=== PATIENT | female | born 1985 | race Caucasian/White ===

== ENCOUNTER 2017-01-15 10:17 | Outpatient (CLI) | payer OTHER ==
[2017-01-15 10:49] VITALS: BMI 42.1
== END 2017-01-15 11:48 | disposition home or self-care (01) ==
LOC: FBCOUT 10:17 → FBC 10:23 → FBCOUT 11:48
PROVIDERS: ATTEND Family Medicine
DX: O36.8190 Decreased fetal movements, unspecified trimester, not applicable or unspecified (principal); Z3A.00 Weeks of gestation of pregnancy not specified
CPT/HCPCS: 59025; 81002; G0463

== ENCOUNTER 2017-01-16 02:58 | Inpatient (IN) | payer OTHER ==
[2017-01-16] MEDS ORDERED: IV START KIT ONE (04:33)
[2017-01-16] MEDS ORDERED: MINERAL OIL 25 ML BOT ONE (04:33)
[2017-01-16] MEDS ORDERED: OXYTOCIN IN LR 500 ML IV ONE ×2 (04:33→04:37)
[2017-01-16] MEDS ORDERED: LACTATED RINGERS 1,000 ML ONE (04:33)
[2017-01-16] MEDS ORDERED: LIDOCAINE 1% (PRES FREE) 30 ML VIAL ONE (04:33)
[2017-01-16] MEDS ORDERED: OXYTOCIN 10 UNITS/ML VIAL ONE (04:33)
[2017-01-16] MEDS ORDERED: LIDOCAINE Viscous 2% 15 ML UDCUP ONE (04:33)
[2017-01-16] MEDS ORDERED: PUMP TUBING ONE (04:33)
[2017-01-16] MEDS ORDERED: SODIUM CHLORIDE 0.9% FLUSH 10 ML ONE (04:34)
[2017-01-16] MEDS ORDERED: PENICILLIN G POTASSIUM 5 MMU in NS 0.9% (MINI-BAG PLUS) 100 ML IV ONE (04:37)
[2017-01-16] MEDS ORDERED: LACTATED RINGERS 1,000 ML IV SCH (04:45)
[2017-01-16] MEDS: LACTATED RINGERS 1,000 ML IV PRN (04:53)
[2017-01-16] MEDS ORDERED: NS 0.9% (MINI-BAG PLUS) 100 ML IV ONE (04:56)
[2017-01-16] MEDS ORDERED: PENICILLIN G POTASSIUM 5 MMU VIAL ONE (04:56)
[2017-01-16 05:28] LABS: AMPHETAMINES/METHAMPHETAMINES NEGATIVE (NEGATIVE); COCAINE NEGATIVE (NEGATIVE); MARIJUANA NEGATIVE (NEGATIVE); METHADONE NEGATIVE (NEGATIVE); OPIATES NEGATIVE (NEGATIVE); TRICYCLIC ANTIDEPRESSANTS NEGATIVE (NEGATIVE)
[2017-01-16] MEDS ORDERED: CALCIUM CARBONATE 500 MG TAB.CHEW PO PRN (05:37)
[2017-01-16] MEDS ORDERED: BENZOCAINE/MENTHOL 60 APPLIC/BOT TP PRN (05:37)
[2017-01-16] MEDS ORDERED: LANOLIN 50 APPLIC/7G TUBE TP PRN (05:37)
--- NOTE | 2017-01-16 05:49 | PCMAN ---
OB Admission Note - History : 6 Term: 4 : 0 Abortions (S&E): 1 Livin Gestational Age (weeks): 40 Days (#/7): 0 Admit Station:: -2 Membrane Status: Bulging Rupture (Date): 01/16/17 Rupture (Time): 05:05 Labor Onset (Date): 01/16/17 Labor Onset (Time): 01:00 Contractions: Yes Heart Rate:: 145 Status:: category 1 Summary of Course:: uncomplicated - Labs GBS Status: Positive Abnormal Labs: None - Problems (1) Active labor at term Status: Acute Code: [id number]/Plan: pt was admitted for active labor expectant management.
[2017-01-16] MEDS: HYDROCODONE/ACETAMINOPHEN 5/325MG TABLET PO PRN ×4 (06:04→20:02)
[2017-01-16] MEDS: IBUPROFEN 800 MG TABLET PO PRN ×3 (06:04→21:46)
[2017-01-16] MEDS ORDERED: LIDOCAINE 1% (PRES FREE) 30 ML VIAL SUB-Q ONE (06:07)
[2017-01-16] MEDS ORDERED: FLU VACC 2016-17 (36MO-64Y)/PF 60 MCG/0.5 ML SYRINGE IM V ONE (07:29)
[2017-01-16 07:31] VITALS: BMI 50.1
[2017-01-16] MEDS ORDERED: PENICILLIN G 3 MIL UNIT PREMIX 3 MMU in Premix (D5W) 50 ml 1 EACH IV SCH (09:00)
[2017-01-16] MEDS: DOCUSATE SODIUM 100 MG CAPSULE PO SCH (09:32)
--- NOTE | 2017-01-16 18:00 | PCMDEL ---
Delivery Note - Labor 1st stage (hr/min):: 2 2nd stage (hr/min):: 30 3rd stage (hr/min):: 3 Total (hr/min):: 2:32 Pushed (hr/min):: 1 - Delivery Delivery (Date): 01/16/17 Delivery (Time): 05:10 Infant Gender: Female Length: 1 ft 7.75 in Position: OA Umbilical Cord: 3 Vessel, Body Cord, Nuchal Cord Delayed Cord Clamping:: < 1-2 min Placenta:: intact EBL:: 200 Perineum:: 1st degree lac Suture:: 4-0 vicryl repaired with one figure of eight Anesthesia/Meds:: lidocaine Length ROM:: 1 min. (AROM 1 min. before delivery) Comments:: Pt delivered successfully and preciptously without complications. GBS positive inadquately treated.
[2017-01-16] MEDS ORDERED: KETOROLAC TROMETHAMINE 30 MG/ML 1 ML VIAL IV PRN (19:30)
[2017-01-16 19:44] LABS: HEMATOCRIT 34.2 % (37.0-47.0); HEMOGLOBIN 11.4 gm/l (12.0-16.0); MEAN CELL VOLUME 85.7 fl (81.0-99.0); MEAN CORPUSCULAR HEMOGLOBIN 28.6 pg (27.0-31.0); MEAN CORPUSCULAR HGB CONC 33.3 g/dl (33.0-37.0); RED CELL DISTRIBUTION WIDTH 13.8 % (11.5-14.5)
[2017-01-17] MEDS: HYDROCODONE/ACETAMINOPHEN 5/325MG TABLET PO PRN (03:15)
[2017-01-17] MEDS: IBUPROFEN 800 MG TABLET PO PRN ×3 (05:46→22:51)
[2017-01-17 06:55] LABS: HEMATOCRIT 28.4 % (37.0-47.0); HEMOGLOBIN 9.3 gm/l (12.0-16.0); MEAN CELL VOLUME 86.6 fl (81.0-99.0); MEAN CORPUSCULAR HEMOGLOBIN 28.4 pg (27.0-31.0); MEAN CORPUSCULAR HGB CONC 32.7 g/dl (33.0-37.0); RED CELL DISTRIBUTION WIDTH 14.1 % (11.5-14.5)
[2017-01-17] MEDS ORDERED: LACTATED RINGERS 1,000 ML ONE (11:08)
[2017-01-17] MEDS: LACTATED RINGERS 1,000 ML IV PRN (11:17)
[2017-01-17] MEDS ORDERED: IV START KIT ONE (11:28)
[2017-01-17] MEDS ORDERED: SODIUM CHLORIDE 0.9% FLUSH 10 ML ONE (11:28)
[2017-01-17] MEDS ORDERED: ALBUTEROL/IPRATROPIUM 2.5/0.5 MG 3 ML/EACH DOSE NEB ONE (11:41)
--- NOTE | 2017-01-17 11:41 | PDOC44 ---
- Subjective Day: 1 Reports Flatus, Reports Pain Tolerable, Reports , Reports Tolerating Regular Diet, Denies Nausea, Denies Vomiting - Objective Temp Pulse Resp BP Pulse Ox 98 F 92 16 109/77 01/17/17 07:31 01/17/17 07:31 01/17/17 07:31 01/17/17 07:31 Lab Results 01/17/17 01/16/17 06:00 04:55 WBC 12.0 H 17.3 H RBC 3.28 L 3.99 L Hgb 9.3 L D 11.4 L Hct 28.4 L 34.2 L Plt Count 296 304 01/17/17 06:00 MCHC 32.7 L Current Medications Generic Name Dose Route Start Last Admin Trade Name Freq PRN Reason Stop Dose Admin Acetaminophen/Hydrocodone Bitart 1 - 2 tab 01/16/17 05:37 01/17/17 03:15 [place] 5/325 PO 2 tab Q4H PRN Administration Pain (Moderate) Benzocaine/Menthol 1 applic 01/16/17 05:37 Dermoplast TP PRN PRN Patient Comfort Calcium Carbonate/Glycine 500 - 1,000 mg 01/16/17 05:37 Tums PO BID PRN Indigestion Docusate Sodium 100 mg 01/16/17 09:00 01/16/17 09:32 Colace PO 100 mg DAILY LUIS Administration Emollient Ointment 1 applic 01/16/17 05:37 [id number]-C-Huwxnd TP PRN PRN sore nipples Ibuprofen 800 mg 01/16/17 05:37 01/17/17 05:46 Motrin PO 800 mg Q8H PRN Administration Pain (Mild) Ketorolac Tromethamine 30 mg 01/16/17 19:30 Toradol IV 01/21/17 19:29 Q6H PRN Pain Oxycodone HCl 5 - 10 mg 01/16/17 05:37 Roxicodone PO Q3H PRN Pain (Severe) Sodium Chloride 10 ml 01/16/17 05:37 01/17/17 03:44 Normal Saline 10ml Flush IV 10 ml PRN PRN Administration IV Flush Sodium Chloride 10 ml 01/17/17 09:00 01/17/17 11:17 Normal Saline 10ml Flush IV 10 ml Q8HR LUIS Administration - Physical Exam General: Afebrile, No Acute Distress Psych/Mental Status: Mood/Affect Appropriate, Bonding Well Neurological: Alert, Oriented x 4 Lungs: Clear to Auscultation Bilaterally Cardiovascular: Regular Rate and Rhythm Breast: Nipples Intact Fundus: Firm, Midline, Below Umbilicus Extremities: Full ROM, No Edema, No Tenderness Skin: Normal Color, Warm, Dry, Intact, No Rash Wound AVIATION CONSULTANT: Dressing Clean/Dry/Intact, Well Approximated - Problems:Assessment/Plan (1) care following vaginal delivery Status: AcuteAssessment/Plan: 1. Routine care. 2. Contraception: BTL on 01/17/17 3. Feeding: 4. Disposition: Home 5. d/c on 01/18/17 after 48 hour r/o on baby for inadequately treated GBS in mom
--- NOTE | 2017-01-17 11:52 | PCMBTL ---
Brief Post Op Note: Date of Procedure: 01/17/17 Start Time: Preoperative Diagnosis: 1. - Postoperative Diagnosis: 1. Same Procedure: tubal ligation - modified Huan on right and Sher on left Surgeon: Nestor Juarez MD Assist: Dr. Noble Anesthesia: Spinal Findings: In tact fallopian tubes with no significant para-ovarian adhesions Condition: Stable Complications: none IV Fluids: 1700 mLs of LR Urine Output: 100 mLs Estimated Blood Loss: 20 mLs Specimens: sent to pathology Drains: none
[2017-01-17] MEDS ORDERED: BUPIVACAINE 0.75% SPINAL AMPUL 2 ML ONE (12:07)
[2017-01-17] MEDS ORDERED: FENTANYL 100 MCG/2 ML VIAL ONE ×2 (12:08→13:28)
[2017-01-17] MEDS ORDERED: MIDAZOLAM HCL 5 MG/5 ML VIAL ONE (12:08)
[2017-01-17] MEDS ORDERED: SPINAL PROCEDURAL TRAY 1 EACH ONE (12:10)
[2017-01-17] MEDS ORDERED: ONDANSETRON 4 MG/2ML 2 ML VIAL ONE (12:52)
[2017-01-17] MEDS ORDERED: MIDAZOLAM HCL 1 MG/ML 2ML VIAL ONE (12:54)
[2017-01-17] MEDS: OXYCODONE HCL 5 MG TABLET PO PRN ×3 (14:42→20:59)
[2017-01-18] MEDS: OXYCODONE HCL 5 MG TABLET PO PRN ×3 (00:18→09:02)
[2017-01-18] MEDS: DOCUSATE SODIUM 100 MG CAPSULE PO SCH ×2 (03:37→09:02)
--- NOTE | 2017-01-18 08:47 | PDOC39B ---
Hospital Course: ADMIT DATE: 01/16/17 DISCHARGE DATE: 01/18/17 ADMISSION DIAGNOSES: Active labor; PROCEDURES: , BTL HISTORY OF PRESENT ILLNESS: 31 year old G6 T4 L4 at 40 weeks 0 days presenting with active labor HOSPITAL COURSE: The patient delivered precipitously and was GBS positive, inadequately treated. Prolonged stay for 48 hour r/o. BTL successfully performed despite difficulty with body habitus. By day of discharge the patient is ambulating, eating, voiding, and passing flatus without difficulty. Pain is controlled and lochia is appropriate. She is bottlefeeding. - Physical Exam Vital Signs: Temp Pulse Resp BP Pulse Ox 97.8 F 90 18 120/76 98 01/18/17 01:30 01/18/17 01:30 01/18/17 01:30 01/18/17 01:30 01/17/17 14:43 General: Afebrile, No Acute Distress Neurological: Alert, Oriented x 4 Lungs: Clear to Auscultation Bilaterally Cardiovascular: Regular Rate and Rhythm Fundus: Firm, Midline, Below Umbilicus Extremities: Full ROM, No Edema Skin: Normal Color, Warm, Dry, Intact, No Rash Wound: Dressing Clean/Dry/Intact, Well Approximated - Discharge Diagnosis (1) care following vaginal delivery Status: AcuteAssessment/Plan: 1. Routine care. 2. Contraception: BTL on 01/17/17, POD #1 now. No erythema or purulence around incision. Some increased pain on 01/18 but taking a regular diet well. 3. Feeding: 4. Disposition: Home 5. d/c on 01/18/17 after 48 hour r/o on baby for inadequately treated GBS in mom. 6. f/u with Dr. Juarez in 6 wks - Discharge Plan Condition: Stable Disposition: Home Prescriptions: Docusate Sodium [COLACE 100 MG CAPSULE (SHF)] 100 mg PO BID PRN #30 cap PRN Reason: Constipation Ibuprofen [Motrin] 800 mg PO Q6H PRN #60 tablet PRN Reason: Pain Follow-Up: Nestor Juarez MD [Staff Physician] - In 6 weeks
[2017-01-18] MEDS: IBUPROFEN 800 MG TABLET PO PRN (09:02)
[2017-01-18 09:17] VITALS: BP 119/77
--- NOTE | 2017-01-21 14:24 | SURGPATH ---
[facility] [address] [place] [id number] Patient Name: CHRIST PITT MR#: [id number] : 1985 Gender: F Specimen #: [id number] Collected: 01/17/2017 Received: 01/20/2017 Reported: 01/21/2017 Submitting Phys: AARON LEE Copy To Phys: [facility] Clinical History / Pre-Operative Diagnosis: NONE PROVIDED Specimen Source / Surgical Procedure Performed: SEGMENT OF LEFT FALLOPIAN TUBE, SEGMENT OF RIGHT FALLOPIAN TUBE (WITH STITCH) Interpretation: FALLOPIAN TUBES, LEFT AND RIGHT, PARTIAL SALPINGECTOMY: - FULL CROSS SECTION OF BILATERAL FALLOPIAN TUBE SEGMENTS SHOWING NO DIAGNOSTIC ABNORMALITIES. Electronically Signed Out Ethan Hicks M.D., Ph.D. Gross Description: The specimen is received in a formalin filled container labeled with the patient's name and "segment of left and right fallopian tubes". Two cylindrical segments of pink-holt tissue are 0.5 x 0.3 cm and 0.8 x 0.4 cm. The shorter segment has an attached stitch and is inked black. Totally embedded in one cassette. Vincenzo Blas, PJulioA. Microscopic Description: Full cross section of bilateral fallopian tube segments microscopically examined. 1: [id number] Z30.2
== END 2017-01-18 11:00 | disposition home or self-care (01) | DRG 767 ==
LOC: FBC 02:58 → FBCOUT 02:58 → FBC 04:30 → FBCOUT 04:30 → FBC 22:06 → UNDODISIN 01-17 13:51
PROVIDERS: ADMIT Family Medicine; ATTEND Family Medicine
PROC: 10E0XZZ Delivery of Products of Conception, External Approach (ICD-10-PCS; principal; 2017-01-16)
PROC: 0HQ9XZZ Repair Perineum Skin, External Approach (ICD-10-PCS; 2017-01-16)
PROC: 10907ZC Drainage of Amniotic Fluid, Therapeutic from Products of Conception, Via Natural or Artificial Opening (ICD-10-PCS; 2017-01-16)
PROC: 0UL70ZZ Occlusion of Bilateral Fallopian Tubes, Open Approach (ICD-10-PCS; 2017-01-17)
DX: O99.824 Streptococcus B carrier state complicating childbirth (principal); Z3A.40 40 weeks gestation of pregnancy; Z37.0 Single live birth; O69.81X0 Labor and delivery complicated by cord around neck, without compression, not applicable or unspecified; O70.0 First degree perineal laceration during delivery; O62.3 Precipitate labor; Z30.2 Encounter for sterilization